=== PATIENT | female | born 1975 ===

== ENCOUNTER 2020-01-23 06:47 | Day surgery (SDC) | payer OTHER | END 2020-01-23 15:50 | disposition home or self-care (01) | LOC: AMB-ENDOS 06:47 → ADM 13:15 → AMB-ENDOS 13:15 | PROVIDERS: ATTEND Colon & Rectal Surgery | DX: K62.89 Other specified diseases of anus and rectum (principal); K64.1 Second degree hemorrhoids; Z20.828 Contact with and (suspected) exposure to other viral communicable diseases ==